=== PATIENT | female | born 1980 ===

== ENCOUNTER 2021-05-19 06:05 | Day surgery (SDC) | payer OTHER ==
[~2021-05-19 06:05] MED LIST: COZAAR50 MG PO
[2021-05-19] MEDS ORDERED: PERCOCET 5-3251 EACH PO (09:27)
[2021-05-19] MEDS ORDERED: POLY119PG PO (09:28)
[2021-05-19] MEDS ORDERED: NEURONTIN600 M1 PO (09:28)
== END 2021-05-19 13:15 | disposition home or self-care (01) ==
LOC: CIR.AMB 06:05
PROVIDERS: ATTEND Surgery
DX: K43.6 Other and unspecified ventral hernia with obstruction, without gangrene (principal); K42.0 Umbilical hernia with obstruction, without gangrene; Z91.013 Allergy to seafood

== ENCOUNTER 2023-01-16 11:49 | Outpatient (CLI) | payer OTHER ==
[~2023-01-16 11:49] MED LIST changes: +NEURONTIN600 M1 PO; +PERCOCET 5-3251 EACH PO; +POLY119PG PO
== END 2023-01-16 11:52 | disposition home or self-care (01) ==
LOC: SONOGRAMA 11:49
PROVIDERS: ATTEND Pathology Anatomic Pathology & Clinical Pathology
DX: D34 Benign neoplasm of thyroid gland (principal); E04.9 Nontoxic goiter, unspecified